=== PATIENT | female | born 1995 ===

== ENCOUNTER 2017-05-27 15:30 | Emergency (ER) | payer SELFPAY ==
[2017-05-27 15:38] VITALS: BP 121/83
[2017-05-27] MEDS ORDERED: Ibuprofen TAB* 600 MG PO ONE (16:01)
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
== END 2017-05-27 16:08 | disposition home or self-care (01) ==
LOC: UCEAST 15:30
DX: S30.1XXA Contusion of abdominal wall, initial encounter (principal); S70.01XA Contusion of right hip, initial encounter; S70.11XA Contusion of right thigh, initial encounter; S76.911A Strain of unspecified muscles, fascia and tendons at thigh level, right thigh, initial encounter; V43.62XA Car passenger injured in collision with other type car in traffic accident, initial encounter; Y93.89 Activity, other specified; Y92.410 Unspecified street and highway as the place of occurrence of the external cause
CPT/HCPCS: 99212; A9270-GY; G0463